=== PATIENT | male | born 2000 | race American Indian/Alaskan Native ===

== ENCOUNTER 2020-11-20 11:17 | Emergency (ER) | payer SELFPAY ==
[2020-11-20 11:33] VITALS: BP 136/70
--- NOTE | 2020-11-20 11:39 | Emergency Department Report ---
Stated Complaint: GROIN IRRITATION Time Seen by Provider: 11/20/20 11:31 - HPI History of Present Illness: 20-year-old -[place] male patient presents with complaints of itchy rash to the mouth and penis x2 weeks. Patient states there is a slight tingling and burning sensation to the rash. He denies any prior history of herpes, penile discharge/dysuria/hematuria, testicular pain/swelling, fever/chills/sweats, or past medical history. Rash is consistent with oral and genital herpes. No signs of life-threatening illness or infection on exam. Recommend follow-up outpatient with the health department or clinic from the provided list within 2 to 3 days. His vitals are normal, he is well-appearing he is stable for discharge home. Discussed signs and symptoms that should prompt immediate return to the emergency department in detail patient verbalizes understanding. - Exam Vital Signs: Vital Signs 11/20/20 11:32 Temperature 97.9 F Pulse Rate 73 Respiratory 18 Rate Blood Pressure 136/70 O2 Sat by Pulse 97 Oximetry MSE screening note: Focused history and physical exam performed. Due to findings the following was ordered: ED Disposition for MSE Clinical Impression: Herpes Disposition: Z-07 MED SCREENING EXAM-LEFT Is pt being admited?: No Condition: Stable Instructions: Cold Sore, Genital Herpes Referrals: [facility] [Provider Group] - 2-3 Days ED Physical Exam - General Limitations: No Limitations General appearance: alert, in no apparent distress - Head Head exam: Present: atraumatic, normocephalic - Eye Eye exam: Absent: scleral icterus - Respiratory Respiratory exam: Absent: respiratory distress - Cardiovascular Cardiovascular Exam: Present: regular rate - exam: Present: other (Papular nontender nonerythemic nondraining rash noted to distal top portion of penis; similar rash noted to top of upper lip) - Back Exam Back exam: Present: normal inspection - Neurological Exam Neurological exam: Present: alert, oriented X3 - Psychiatric Psychiatric exam: Present: normal affect, normal mood - Skin Skin exam: Present: warm, dry, intact, normal color, rash. Absent: erythema ED Review of Systems ROS: Stated complaint: GROIN IRRITATION Other details as noted in HPI Constitutional: denies: chills, fever, malaise ENT: denies: throat pain Respiratory: denies: cough, shortness of breath Cardiovascular: denies: chest pain Genitourinary: denies: urgency, dysuria, frequency, hematuria, discharge, testicular pain, testicular mass Skin: rash, pruritus. denies: change in color Hematological/Lymphatic: denies: swollen glands
== END 2020-11-20 14:03 | disposition left against medical advice (07) ==
LOC: ED 11:17
DX: Z00.8 Encounter for other general examination (principal); Z53.21 Procedure and treatment not carried out due to patient leaving prior to being seen by health care provider